=== PATIENT | male | born 1995 | race Caucasian/White ===

== ENCOUNTER 2018-06-10 16:04 | Emergency (ER) | payer MEDICAID, SELFPAY ==
[2018-06-10 16:08] VITALS: BP 158/101; PULSE 131; RESP 26; TEMP 36.6; O2SAT 95; BMI 23.6
--- NOTE | 2018-06-10 16:32 | EKG12_ITS ---
Test Reason : OVERDOSE Blood Pressure : / mmHG Vent. Rate : 121 BPM Atrial Rate : 121 BPM P-R Int : 132 ms QRS Dur : 078 ms QT Int : 316 ms P-R-T Axes : 073 083 038 degrees QTc Int : 448 ms Sinus tachycardia Otherwise normal ECG Confirmed by EDGARDO JAVED, DEIDRE ([id number]), tape editor CHERELLE LEY ([id number]) on 06/11/2018 8:23:32 AM Referred By: JULIUS Confirmed By:DEIDRE REYNOSO MD
[2018-06-10] MEDS: 0.9% Normal Saline 1,000 ML 999 ML IV (16:42)
[2018-06-10 17:29] VITALS: BP 131/104; PULSE 90; RESP 16; O2SAT 98
[2018-06-10 17:52] VITALS: BP 127/89; PULSE 83; RESP 16; O2SAT 100
--- NOTE | 2018-06-10 17:52 | ED.VISSUMM ---
- ER Visit Summary Date of Service: 06/10/18 Chief Complaint: Unresponsive History of Present Illness: The patient is a 23 M presenting per EMS after being found unresponsive. Patient was given Narcan per EMS. He initially had agonal respirations. This resolved with Narcan. He admits to heroin use today. He denies suicidal ideation. Denies other complaints. Physical Examination: Vitals are stable. Heart rate 131. Patient is afebrile. Alert no acute distress. HEENT exam is unremarkable. Neck is supple. Lungs are clear and equal bilaterally. Heart is regular and tachycardic Abdomen is soft nontender nondistended. Extremities track escalera, no erythema or warmth. Skin is warm and dry. No focal neurologic deficit. Remainder of exam is unremarkable. Emergency Department Course and Treatment: EKG is sinus tachycardia rate of 121. Patient was given IV fluids. Repeat heart rate 89. He was observed in the ED and continues to be hemodynamically stable. He will be discharged. Advised follow-up with primary care physician. Advised return to ED if worsening complaints. Disposition: Discharge home Impression: Heroin overdose This note was generated with [employer] dictation software. It may contain incorrect words, spelling, and punctuation that were not noted in review of the chart prior to signing ED Disposition - Plan for ED Patient: Referrals: Hector Swann [Primary Care Provider] -
--- NOTE | 2018-06-10 17:56 | ED.DEP ---
ED Disposition - Plan for ED Patient: Instructions: ED Overdose Opiate Referrals: Hector Swann [Primary Care Provider] -
== END 2018-06-10 18:02 | disposition home or self-care (01) ==
PROVIDERS: Emergency Provider Emergency Medicine; Family Provider Family Medicine; PCP Family Medicine
DX: T40.1X1A Poisoning by heroin, accidental (unintentional), initial encounter (principal); Z72.0 Tobacco use
CPT/HCPCS: 93005; 96360; 99285; J7030; A4216

== ENCOUNTER → 2019-03-12 09:04 | Outpatient (CLI) | payer MEDICAID, SELFPAY ==
[2019-03-12 11:26] LABS: AST(SGOT) 38 U/L (15-37); Alanine Aminotransfer ALT/SGPT 107 U/L (16-61); Albumin, Serum 4.2 g/dL (3.2-5.0); Alkaline Phosphatase 24 U/L (45-117); Bilirubin, Direct 0.16 mg/dL (0.00-0.30); Globulin 3.3 g/dL (2.2-4.2); Protein, Total 7.5 g/dL (6.4-8.2)
[2019-03-12 11:29] LABS: Hepatitis B Surface Antigen Non-Reactive (Nonreactive)
[2019-03-12 11:38] LABS: Hepatitis C Antibody REACTIVE (Nonreactive)
== END ==
PROVIDERS: Family Provider Family Medicine; PCP Family Medicine
DX: R63.0 Anorexia (principal); R53.81 Other malaise; R11.0 Nausea
CPT/HCPCS: 36415; 80076; 86803; 87340; 87521

== ENCOUNTER 2019-12-30 18:23 | Emergency (ER) | payer MEDICAID, SELFPAY ==
[2019-12-30 18:27] VITALS: BP 145/84; PULSE 110; RESP 20; TEMP 37.2; O2SAT 97; BMI 23.3
[2019-12-30 19:24] VITALS: BP 104/79; PULSE 91; RESP 14; O2SAT 94
--- NOTE | 2019-12-30 19:34 | ED.DCSUM_ITS ---
- ER Visit Summary Date of Service: 12/30/19 Chief Complaint: Heroin overdose History of Present Illness: The patient is a 24 M presenting per EMS after heroin overdose. According to bystander patient had decreased respirations after using heroin. EMS was called. He was given Narcan. He is now awake and alert. He denies suicidal ideation. He declines detox. Denies other drug use. Physical Examination: Vitals are stable. Patient is afebrile. Alert no acute distress. HEENT exam is unremarkable. Neck is supple. Lungs are clear and equal bilaterally. Heart is regular rate and rhythm. Abdomen is soft nontender nondistended. Extremities are unremarkable. Skin is warm and dry. No focal neurologic deficit. Remainder of exam is unremarkable. Emergency Department Course and Treatment: Patient was observed in the ED. He continues to decline detox. Advised follow-up with primary care physician. Advised return to ED for worsening complaints. Disposition: Discharge home Impression: Accidental heroin overdose This note was generated with [employer] dictation software. It may contain incorrect words, spelling, and punctuation that were not noted in review of the chart prior to signing ED Disposition - Plan for ED Patient: Instructions: ED Overdose Opiate Referrals: Hector Swann MD [Primary Care Provider] -
[2019-12-30 19:53] VITALS: BP 108/64; PULSE 85; RESP 16; O2SAT 93
== END 2019-12-30 19:56 | disposition home or self-care (01) ==
PROVIDERS: Emergency Provider Emergency Medicine; PCP Family Medicine
DX: T40.1X1A Poisoning by heroin, accidental (unintentional), initial encounter (principal); F17.200 Nicotine dependence, unspecified, uncomplicated
CPT/HCPCS: 99284

== ENCOUNTER 2020-03-09 23:19 | Inpatient (IN) | payer MEDICAID, SELFPAY ==
[2020-03-09 23:20] VITALS: BP 128/71; PULSE 84; RESP 16; TEMP 36.3; O2SAT 99; BMI 22.3
--- NOTE | 2020-03-09 23:30 | ED.DCSUM_ITS ---
History of Present Illness Chief Complaint: Substance Abuse Narrative: This patient is a 25-year-old male who presents seeking detox from heroin. He was in a detox program in August and relapsed the day he left. His last use was about 5 h ago. He currently complains of some chills but has no other complaints. He denies any medical history. Past Medical History - Allergies and Home Meds Allergies/Adverse Reactions: Allergies amoxicillin Allergy (Verified 03/09/20 23:22) Swelling Primary Care Physician: Hector Swann MD [Primary Care Provider] - Past Medical History: - - Heroin abuse Smoking Status: Current every day smoker Review of Systems All systems negative except as indicated General: Reports: Chills. Denies: Fever Eyes: Denies: Visual changes - bilaterally Cardiovascular: Denies: Chest pain Respiratory: Denies: Dyspnea Gastrointestinal: Denies: Nausea, Vomiting, Diarrhea Musculoskeletal: Denies: Myalgias, Arthralgias Neurological: Denies: Headache Physical Exam Vital Signs/Narrative: Vital Signs Temp Pulse Resp BP Pulse Ox 03/09/20 23:20 97.3 F L 84 16 128/71 H 99 Inital Vital Signs reviewed: Yes General: Well nourished, Well developed Head: Normocephalic Eyes: EOMI ENT: Moist mucous membranes Neck: Supple Cardiovascular: Regular rate, Regular rhythm Respiratory: No distress, CTA bilaterally Abdomen: Soft Skin: Normal color Neurological: Alert Psychological: Normal affect Diagnostic/Tx/Re-eval Laboratory Results 03/09/20 03/09/20 03/09/20 23:32 23:32 23:32 WBC 7.2 RBC 4.48 L Hgb 13.7 Hct 41.4 MCV 92.4 MCH 30.6 MCHC 33.1 RDW Std Deviation 42.1 RDW Coeff of Jasmine 12.4 Plt Count 288 MPV 9.6 Immature Gran % (Auto) 0.400 Neut % (Auto) 59.5 Lymph % (Auto) 30.7 Pet[place] % (Auto) 6.8 Eos % (Auto) 2.0 Baso % (Auto) 0.6 Absolute Neuts (auto) 4.3 Absolute Lymphs (auto) 2.20 Nucleated RBC % 0 Sodium 141 Potassium 4.2 Chloride 106 Carbon Dioxide 32.0 Anion Gap 3 L BUN 16 Creatinine 0.99 Estim Creat Clear Calc 117.09 Est GFR (MDRD) Af Amer 118 Est GFR (MDRD) Non-Af 98 BUN/Creatinine Ratio 16.1 Glucose 94 Calcium 9.0 Total Bilirubin 0.30 AST 25 ALT 55 Alkaline Phosphatase 37 L Total Protein 7.5 Albumin 3.7 Globulin 3.8 Albumin/Globulin Ratio 1.0 Urine Opiates Screen Urine Methadone Screen Ur Barbiturates Screen Ur Phencyclidine Scrn Ur Amphetamines Screen U Methamphetamin-MDMA U Benzodiazepines Scrn Urine Cocaine Screen U Cannabinoids Screen Ur Drug Screen Comment Ethyl Alcohol < 3.0 03/09/20 23:32 WBC RBC Hgb Hct MCV MCH MCHC RDW Std Deviation RDW Coeff of Jasmine Plt Count MPV Immature Gran % (Auto) Neut % (Auto) Lymph % (Auto) [place] % (Auto) Eos % (Auto) Baso % (Auto) Absolute Neuts (auto) Absolute Lymphs (auto) Nucleated RBC % Sodium Potassium Chloride Carbon Dioxide Anion Gap BUN Creatinine Estim Creat Clear Calc Est GFR (MDRD) Af Amer Est GFR (MDRD) Non-Af BUN/Creatinine Ratio Glucose Calcium Total Bilirubin AST ALT Alkaline Phosphatase Total Protein Albumin Globulin Albumin/Globulin Ratio Urine Opiates Screen POSITIVE H Urine Methadone Screen NEGATIVE Ur Barbiturates Screen NEGATIVE Ur Phencyclidine Scrn NEGATIVE Ur Amphetamines Screen POSITIVE H U Methamphetamin-MDMA POSITIVE H U Benzodiazepines Scrn NEGATIVE Urine Cocaine Screen NEGATIVE U Cannabinoids Screen NEGATIVE Ur Drug Screen Comment Ethyl Alcohol - Medical Decision Making Medical clearance as above notable for positive opiates amphetamines and methamphetamines on urine drug screen. Patient will be discussed with the hospitalist and admitted. ED Disposition - Plan for ED Patient: Disposition: Acute Care Hospital [facility] Diagnosis: Polysubstance abuse Referrals: Hector Swann MD [Primary Care Provider] -
[2020-03-09 23:40] LABS: Absolute Neutrophil Count 4.3 X10^3/uL (2.0-7.7); Basophil# 0.04 X10^3/uL; Basophil% 0.6 % (0-1); Eosinophil# 0.14 X10^3/uL; Hematocrit 41.4 % (40-54); Hemoglobin 13.7 g/dL (13.0-16.5); Lymphocyte % 30.7 % (19-41); Mean Corp Hgb Conc 33.1 g/dL (32-36); Mean Corpuscular Hgb 30.6 pg (27.0-32.0); Mean Corpuscular Volume 92.4 fL (80-94); Mean Platelet Vol. 9.6 fl (6.2-12.0); Monocyte# 0.49 X10^3/uL; Monocyte% 6.8 % (0-10); NRBC Flagged by Analyzer 0 % (0-5); Neutrophil # 4.27 X10^3/uL (2.7-7.7); Neutrophil % 59.5 % (47-70); Platelet Count 288 K/mm3 (150-450); RBC Distribution Width CV 12.4 % (11.6-14.6); RBC Distribution Width SD 42.1 fl (35.1-43.9); Red Blood Count 4.48 M/mm3 (4.6-6.2); White Blood Count 7.2 K/mm3 (4.4-11.0)
[2020-03-09 23:58] LABS: Alcohol, Blood (Medical)-Serum < 3.0 mg/dL
[2020-03-10] VITALS (9 sets, daily range): BP systolic 112–125; BP diastolic 60–75; PULSE 63–77; RESP 16–18; TEMP 36.4–36.7; O2SAT 97–100; BMI 22.0
[2020-03-10] LABS: AST(SGOT) 25 U/L (15-37); Alanine Aminotransfer ALT/SGPT 55 U/L (16-61); Albumin, Serum 3.7 g/dL (3.2-5.0); Alkaline Phosphatase 37 U/L (45-117); Amphetamine Urine VISTA POSITIVE (<1000 ng/mL); Anion Gap 3 (5-15); BUN 16 mg/dL (7-18); BUN/Creat Ratio 16.1 RATIO (10-20); Barbiturate Urine VISTA NEGATIVE (< 200 ng/mL); Benzodiazepine Urine VISTA NEGATIVE (< 200 ng/mL); Chloride 106 mmol/L (98-107); Cocaine Urine VISTA NEGATIVE (< 300 ng/mL); Creatinine, Serum 0.99 mg/dL (0.70-1.30); EST Glomerular Filtration Rate 98 mL/min (>60); Ecstacy Urine VISTA POSITIVE (< 500 ng/mL); Est Glom Filt Rate - Afr Amer 118 mL/min (>60); Estimated Creatinine Clearance 117.09 ml/min; Globulin 3.8 g/dL (2.2-4.2); Glucose 94 mg/dL (74-106); Methadone Urine VISTA NEGATIVE (< 300 ng/mL); PCP Urine VISTA NEGATIVE (< 25 ng/mL); Potassium 4.2 mmol/L (3.5-5.1); Protein, Total 7.5 g/dL (6.4-8.2); Sodium Level 141 mmol/L (136-145); THC Urine VISTA NEGATIVE (< 50 ng/mL); Vista UDS pH Range 6
--- NOTE | 2020-03-10 00:31 | HP.PCM_ITS ---
Problem List (1) Opioid abuse with withdrawal Status: Acute (2) Polysubstance abuse Status: Acute History of Present Illness Date of Admission: 03/10/20 Chief Complaint: withdrawal The patient is a 25 year old M with a significant history of hepatitis C; and polysubstance abuse who presents emergency department with desire for detoxification. While at the emergency department he began to have withdrawal symptoms. He reported his withdrawal symptoms as cold sweats. Heroin; cocaine; methamphetamine; weed and tobacco. He reports that he uses anything that he can lay his hands on. He shoots heroin in any part of his body. He uses about 3 g of heroin per day. The last time he used heroin was several hours before presentation (about noon before presenting to the emergency department). His snorts cocaine. He smokes methamphetamine and marijuana. Patient was at the prison. After he was released from prison he went to an inpatient rehab from June 02 2019 where he spent 84 days. He resumed using drugs at around September 15, 2019. He came to the emergency department with his girlfriend who is also here for detoxification. Past Medical History Medical History: Medical History (Last Updated 03/10/20 @ 01:[address] Gary Ackerman MD) Hepatitis C B19.20 Allergies amoxicillin Allergy (Verified 03/09/20 23:22) Swelling Home Medications: Ambulatory Orders Medication Instructions Recorded NK 12/30/19 Surgical History: - - Facial surgery with plates on 2 occasions. Arm surgery. Smoking Status: Current every day smoker Tobacco Use: Cigarettes - *Family History Maternal History Items: - - Denies history of drug use in family. Denies knowledge of maternal medical history Paternal History Items: Hypertension, - - Denies history of drug use in paternal family. Review of Systems Constitutional: Reports: Chills. Denies: Fever, Weight Change HEENT: Denies: Head Aches, Sinus Congestion, Sinus Drainage Cardiovascular: Denies: Chest Pain, Palpitations Respiratory: Denies: Cough, Shortness of breath at rest, Sputum production Gastrointestinal: Denies: Abdominal Pain, Nausea, Vomiting Genitourinary: Denies: Dysuria Musculoskeletal: Denies: Joint Pain, Joint Tenderness Skin: Denies: Rash, Wounds Neurological: Denies: Numbness, Tingling, Focal weakness Psychiatric: Denies: Anxiety, Depression, Homicidal Ideations, Suicidal Ideations Hematologic/ Lymphatic: Denies: Easy Bruising, Easy Bleeding VTE Information - Inpt Only VTE Present on Admission: No VTE Mechan Device Prophylaxis: None VTE Pharm Prophylaxis ordered?: No Reason prophylaxis not ordered:: Treatment Not Indicated - Low risk; encouraged to ambulate Patient Problems: Active and Suspected Problems (Last Updated 03/10/20 @ 01:[address] Gary Ackerman MD) Polysubstance abuse (Acute) Opioid abuse with withdrawal (Acute) - Physical Exam Vitals/I&O's: Vital Signs Temp Pulse Resp BP Pulse Ox 97.6 F L 72 18 112/60 98 03/10/20 00:21 03/10/20 00:21 03/10/20 00:21 03/10/20 00:21 03/10/20 00:21 Oxygen Delivery Method Room Air Weight: 72.575 kg Body Mass Index (BMI) 22.3 General: Alert, Oriented x3, Cooperative HEENT: Atraumatic, PERRLA, EOMI, Normocephalic Neck: Supple, No JVD, Negative Carotid Bruits Lungs: Clear to auscultation, Normal air movement Cardiovascular: Regular rate, No murmurs Abdomen: Bowel Sounds Present, Soft, Non Tender Extremities: No edema, Capillary Refill Less than 3 Seconds Skin: No rashes, No breakdown Musculoskeletal: No Tenderness to Palpation of Joints or Extremities Neurological: Cranial nerves II-XII grossly intact Psych/Mental Status: Normal Affect, Appropriate Laboratory Results 03/09/20 23:32: WBC 7.2, RBC 4.48 L, Hgb 13.7, Hct 41.4, MCV 92.4, MCH 30.6, MCHC 33.1, RDW Std Deviation 42.1, RDW Coeff of Jasmine 12.4, Plt Count 288, MPV 9.6, Immature Gran % (Auto) 0.400, Neut % (Auto) 59.5, Lymph % (Auto) 30.7, [place] % (Auto) 6.8, Eos % (Auto) 2.0, Baso % (Auto) 0.6, Absolute Neuts (auto) 4.3, Absolute Lymphs (auto) 2.20, Nucleated RBC % 0 03/09/20 23:32: Sodium 141, Potassium 4.2, Chloride 106, Carbon Dioxide 32.0, Anion Gap 3 L, BUN 16, Creatinine 0.99, Estim Creat Clear Calc 117.09, Est GFR (MDRD) Af Amer 118, Est GFR (MDRD) Non-Af 98, BUN/Creatinine Ratio 16.1, Glucose 94, Calcium 9.0, Total Bilirubin 0.30, AST 25, ALT 55, Alkaline Phosphatase 37 L , Total Protein 7.5, Albumin 3.7, Globulin 3.8, Albumin/Globulin Ratio 1.0 03/09/20 23:32: Ethyl Alcohol < 3.0 03/09/20 23:32: Urine Opiates Screen POSITIVE H, Urine Methadone Screen NEGATIVE, Ur Barbiturates Screen NEGATIVE, Ur Phencyclidine Scrn NEGATIVE, Ur Amphetamines Screen POSITIVE H, U Methamphetamin-MDMA POSITIVE H, U Benzodiazepines Scrn NEGATIVE, Urine Cocaine Screen NEGATIVE, U Cannabinoids Screen NEGATIVE, Ur Drug Screen Comment Assessment/Plan All Active Problems (Last Updated 03/10/20 @ 01:[address] Gary Ackerman MD) Polysubstance abuse (Acute) Opioid abuse with withdrawal (Acute) The patient is a 25 year old M with a significant history of polysubstance dependence; IV drug use; and abuse who presents emergency department with drug withdrawal symptoms and who came in with his spouse for joint detoxification Opioid dependence and withdrawal Review of emergency department labs showed urine toxicology was positive for opiates; amphetamines; and methamphetamines. Patient be started on Subutex and add adjunctive medications: Gabapentin as needed; dicyclomine as needed; Vistaril as needed; methocarbamol as needed; clonidine as needed; Imodium as needed; trazodone as needed and Zofran as needed. Monitor COWS and CINA score Tobacco abuse Counseled Declined nicotine patch prescribed. DVT prophylaxis Low risk Encouraged to ambulate Inpatient E&M: [id number] Init Hosp L2
--- NOTE | 2020-03-10 08:50 | CASEMGMT ---
Social Work Note Pt is RAMP pt. SW placed a call to Connie at [facility] and left message that pt will need to be seen. Irma Shirley WEB MARKETING MANAGER, WHEAT COMBINE DRIVER
--- NOTE | 2020-03-10 10:11 | ADDICTION ---
This radio script writer met with patient in his room to conduct ASAM, MSE and DUDIT assessments and to plan for discharge. patient reported that he has been in contact with [facility] and plans to admit into their inpatient program upon d/c from [facility]. This radio script writer provided contact information for [employer] in case plans with [facility] though. Patient presented with increasing agitation and physical agitation while this radio script writer was engaging in assessments. Patient stated that he was becoming very uncomfortable and experiencing withdrawal symptoms. This radio script writer informed patient's nurse. All completed documentation placed in client's chart and sent to [facility].
[2020-03-10] MEDS: Gabapentin 300 MG Capsule PO (10:22)
[2020-03-10] MEDS: Buprenorphine HCl 2 MG TAB.SUBL SL ×2 (10:22→17:53)
[2020-03-10] MEDS: Dicyclomine 10 MG Capsule 20 MG PO (12:09)
[2020-03-10] MEDS: cloNIDine HCl 0.1 MG Tablet PO ×2 (12:09→20:59)
--- NOTE | 2020-03-10 14:07 | PN_ITS ---
Patient Problems: Active and Suspected Problems (Last Updated 03/10/20 @ 01:[address] Gary Ackerman MD) Polysubstance abuse (Acute) Opioid abuse with withdrawal (Acute) Subjective: Patient seen and examined. He was admitted for acute opioid withdrawal. He has no complaints this morning. Review of systems otherwise negative. He is on opioid withdrawal protocol with buprenorphine Vitals/I&O's: Vital Signs Temp Pulse Resp BP Pulse Ox 97.9 F 74 18 119/65 98 03/10/20 10:13 03/10/20 10:13 03/10/20 10:13 03/10/20 10:13 03/10/20 10:13 Oxygen Delivery Method Room Air Weight: 157 lb 13.616 oz Body Mass Index (BMI) 22.0 Intake and Output for Last 24 Hours 03/08/20 03/09/20 03/10/20 23:59 23:59 23:59 Intake Total 360 / 360 Balance 360 / 360 General: Alert, Oriented x3, Cooperative, No apparent distress HEENT: Atraumatic, PERRLA, EOMI, Normocephalic Oral: Dry Mucosa Neck: Supple, No JVD, Negative Carotid Bruits Lungs: Clear to auscultation, Normal air movement Cardiovascular: Regular rate, Regular Rhythm, Normal S1, Normal S2, No murmurs Abdomen: Bowel Sounds Present, Soft, Non Tender, Non-Distended, No Hepato- splenomegaly Extremities: No clubbing, No cyanosis, No edema, Capillary Refill Less than 3 Seconds Skin: No rashes, No breakdown Musculoskeletal: No Tenderness to Palpation of Joints or Extremities Lymphatic: No Cervical, Supraclavicular, or Inguinal Adenopathy Neurological: Cranial nerves II-XII grossly intact, Neuro grossly intact, Motor Exam 5/5 strength throughout Psych/Mental Status: Normal Affect, Appropriate, Alert and oriented to time, place, person, mood and affect Laboratory Results 03/09/20 23:32: WBC 7.2, RBC 4.48 L, Hgb 13.7, Hct 41.4, MCV 92.4, MCH 30.6, MCHC 33.1, RDW Std Deviation 42.1, RDW Coeff of Jasmine 12.4, Plt Count 288, MPV 9.6, Immature Gran % (Auto) 0.400, Neut % (Auto) 59.5, Lymph % (Auto) 30.7, [place] % (Auto) 6.8, Eos % (Auto) 2.0, Baso % (Auto) 0.6, Absolute Neuts (auto) 4.3, Absolute Lymphs (auto) 2.20, Nucleated RBC % 0 03/09/20 23:32: Sodium 141, Potassium 4.2, Chloride 106, Carbon Dioxide 32.0, Anion Gap 3 L, BUN 16, Creatinine 0.99, Estim Creat Clear Calc 117.09, Est GFR (MDRD) Af Amer 118, Est GFR (MDRD) Non-Af 98, BUN/Creatinine Ratio 16.1, Glucose 94, Calcium 9.0, Total Bilirubin 0.30, AST 25, ALT 55, Alkaline Phosphatase 37 L , Total Protein 7.5, Albumin 3.7, Globulin 3.8, Albumin/Globulin Ratio 1.0 03/09/20 23:32: Ethyl Alcohol < 3.0 03/09/20 23:32: Urine Opiates Screen POSITIVE H, Urine Methadone Screen NEGATIVE, Ur Barbiturates Screen NEGATIVE, Ur Phencyclidine Scrn NEGATIVE, Ur Amphetamines Screen POSITIVE H, U Methamphetamin-MDMA POSITIVE H, U Benzodiazepines Scrn NEGATIVE, Urine Cocaine Screen NEGATIVE, U Cannabinoids Screen NEGATIVE, Ur Drug Screen Comment Current Medications Buprenorphine HCl (Buprenorphine Hcl 2 Mg Tab.Subl) 4 mg SL Q8H GAIL; Taper Stop: 03/13/20 10:29 Last Admin: 03/10/20 10:22 Dose: 4 mg Documented by: Clonidine (Clonidine Hcl 0.1 Mg Tablet) 0.1 mg PO Q8H PRN PRN PRN Reason: RESTLESSNESS Last Admin: 03/10/20 12:09 Dose: 0.1 mg Documented by: Dicyclomine HCl (Dicyclomine 10 Mg Capsule) 20 mg PO Q6H PRN PRN PRN Reason: Abdominal Discomfort Last Admin: 03/10/20 12:09 Dose: 20 mg Documented by: Gabapentin (Gabapentin 300 Mg Capsule) 300 mg PO Q8H PRN PRN PRN Reason: moderate to severe anxiety Last Admin: 03/10/20 10:22 Dose: 300 mg Documented by: Hydroxyzine Pamoate (Hydroxyzine Barbara 25 Mg Capsule) 50 mg PO Q6H PRN PRN PRN Reason: mild anxiety Loperamide HCl (Loperamide 2 Mg Capsule) 2 mg PO Q4H PRN PRN PRN Reason: LOOSE STOOLS Methocarbamol (Methocarbamol 750 Mg Tablet) 1,500 mg PO Q6H PRN PRN PRN Reason: MUSCLE SPASM Nutritional Formula (Lactose Free) (Ensure Enlive 120 Ml Liquid) 120 ml PO 4X/DAY GAIL Last Admin: 03/10/20 13:34 Dose: Not Given Documented by: Ondansetron HCl (Ondansetron 8 Mg Tablet) 8 mg PO Q8H PRN PRN PRN Reason: NAUSEA Trazodone HCl (Trazodone 100 Mg Tablet) 100 mg PO QHS PRN PRN PRN Reason: INSOMNIA STROKE Vital Signs/Narrative: Vital Signs Temp Pulse Resp BP Pulse Ox 03/10/20 10:13 97.9 F 74 18 119/65 98 Medical Necessity - Tobacco Use Smoking Status: Current every day smoker Tobacco Use: Cigarettes Assessment/Plan All Active Problems (Last Updated 03/10/20 @ 01:[address] Gary Ackerman MD) Polysubstance abuse (Acute) Opioid abuse with withdrawal (Acute) # Acute opioid withdrawal * on opioid withdrawal protocol with buprenorphine * urine tox was positive for opiates, methamphetamines. * monitor CINA score * # Nicotine dependence; counseled to quit. Patient apparently declined nicotine patch on admission. DVT prophylaxis; low risk, encouraged to ambulate Inpatient E&M: [id number] Subs Hosp L2
[2020-03-10] MEDS: hydrOXYzine PAM 25 MG Capsule 50 MG PO (14:42)
[2020-03-10] MEDS: traZODone 100 MG Tablet PO (20:59)
--- NOTE | 2020-03-11 01:16 | NURSING ---
Denies needs at this time. Warm blanket provided.
[2020-03-11 02:16] VITALS: BP 112/69; PULSE 66; RESP 16; TEMP 36.7; O2SAT 99
[2020-03-11] MEDS: Buprenorphine HCl 2 MG TAB.SUBL SL ×3 (02:23→18:05)
[2020-03-11 07:50] VITALS: BP 115/73; PULSE 63; RESP 18; TEMP 36.5; O2SAT 99
--- NOTE | 2020-03-11 07:50 | PN_ITS ---
Patient Problems: Active and Suspected Problems (Last Updated 03/10/20 @ 01:[address] Gary Ackerman MD) Polysubstance abuse (Acute) Opioid abuse with withdrawal (Acute) Subjective: Patient seen and examined. He has no complaints. Review of systems is otherwise negative. Vitals/I&O's: Vital Signs Temp Pulse Resp BP Pulse Ox 98.0 F 66 16 112/69 99 03/11/20 02:16 03/11/20 02:16 03/11/20 02:16 03/11/20 02:16 03/11/20 02:16 Oxygen Delivery Method Room Air Weight: 157 lb 13.616 oz Body Mass Index (BMI) 22.0 Intake and Output for Last 24 Hours 03/09/20 03/10/20 03/11/20 23:59 23:59 23:59 Intake Total 960 / 1160 200 / 200 Balance 960 / 1160 200 / 200 General: Alert, Oriented x3, Cooperative, No apparent distress HEENT: Atraumatic, PERRLA, EOMI, Normocephalic Oral: Dry Mucosa Neck: Supple, No JVD, Negative Carotid Bruits Lungs: Clear to auscultation, Normal air movement Cardiovascular: Regular rate, Regular Rhythm, Normal S1, Normal S2, No murmurs Abdomen: Bowel Sounds Present, Soft, Non Tender, Non-Distended, No Hepato- splenomegaly Extremities: No clubbing, No cyanosis, No edema, Capillary Refill Less than 3 Seconds Skin: No rashes, No breakdown Musculoskeletal: No Tenderness to Palpation of Joints or Extremities Lymphatic: No Cervical, Supraclavicular, or Inguinal Adenopathy Neurological: Cranial nerves II-XII grossly intact, Neuro grossly intact, Motor Exam 5/5 strength throughout Psych/Mental Status: Normal Affect, Appropriate, Alert and oriented to time, place, person, mood and affect Current Medications Buprenorphine HCl (Buprenorphine Hcl 2 Mg Tab.Subl) 4 mg SL Q8H GAIL; Taper Stop: 03/13/20 10:29 Last Admin: 03/11/20 02:23 Dose: 4 mg Documented by: Clonidine (Clonidine Hcl 0.1 Mg Tablet) 0.1 mg PO Q8H PRN PRN PRN Reason: RESTLESSNESS Last Admin: 03/10/20 20:59 Dose: 0.1 mg Documented by: Dicyclomine HCl (Dicyclomine 10 Mg Capsule) 20 mg PO Q6H PRN PRN PRN Reason: Abdominal Discomfort Last Admin: 03/10/20 12:09 Dose: 20 mg Documented by: Gabapentin (Gabapentin 300 Mg Capsule) 300 mg PO Q8H PRN PRN PRN Reason: moderate to severe anxiety Last Admin: 03/10/20 10:22 Dose: 300 mg Documented by: Hydroxyzine Pamoate (Hydroxyzine Barbara 25 Mg Capsule) 50 mg PO Q6H PRN PRN PRN Reason: mild anxiety Last Admin: 03/10/20 14:42 Dose: 50 mg Documented by: Loperamide HCl (Loperamide 2 Mg Capsule) 2 mg PO Q4H PRN PRN PRN Reason: LOOSE STOOLS Methocarbamol (Methocarbamol 750 Mg Tablet) 1,500 mg PO Q6H PRN PRN PRN Reason: MUSCLE SPASM Nutritional Formula (Lactose Free) (Ensure Enlive 120 Ml Liquid) 120 ml PO 4X/DAY GAIL Last Admin: 03/10/20 21:02 Dose: 120 ml Documented by: Ondansetron HCl (Ondansetron 8 Mg Tablet) 8 mg PO Q8H PRN PRN PRN Reason: NAUSEA Trazodone HCl (Trazodone 100 Mg Tablet) 100 mg PO QHS PRN PRN PRN Reason: INSOMNIA Last Admin: 03/10/20 20:59 Dose: 100 mg Documented by: STROKE Vital Signs/Narrative: Vital Signs Temp Pulse Resp BP Pulse Ox 03/11/20 07:50 97.7 F L 63 18 115/73 99 Medical Necessity - Tobacco Use Smoking Status: Current every day smoker Tobacco Use: Cigarettes Assessment/Plan All Active Problems (Last Updated 03/10/20 @ 01:[address] Gary Ackerman MD) Polysubstance abuse (Acute) Opioid abuse with withdrawal (Acute) # Acute opioid withdrawal * on opioid withdrawal protocol with buprenorphine * monitor CINA score * # Nicotine dependence; counseled to quit. Patient apparently declined nicotine patch on admission. DVT prophylaxis: low risk, encouraged to ambulate Inpatient E&M: [id number] Subs Hosp L2
[2020-03-11 13:02] VITALS: BP 130/67; PULSE 79; RESP 18; TEMP 36.7; O2SAT 98
[2020-03-11] MEDS: cloNIDine HCl 0.1 MG Tablet PO (13:06)
[2020-03-11] MEDS: Gabapentin 300 MG Capsule PO (13:06)
--- NOTE | 2020-03-11 17:58 | PCS.PANDOC ---
PANDEMIC DOCUMENTATION INITIATED: Date: 03/10/20 Time: 0114
[2020-03-11 18:04] VITALS: BP 124/53; PULSE 74; RESP 18; TEMP 36.8; O2SAT 98
[2020-03-11 20:18] VITALS: BP 119/86; PULSE 89; RESP 16; TEMP 36.8; O2SAT 98
[2020-03-11] MEDS: traZODone 100 MG Tablet PO (22:06)
[2020-03-12 02:45] VITALS: BP 117/74; PULSE 61; RESP 16; TEMP 36.4; O2SAT 99
[2020-03-12] MEDS: Buprenorphine HCl 2 MG TAB.SUBL SL ×3 (02:47→22:17)
--- NOTE | 2020-03-12 07:59 | PN_ITS ---
Patient Problems: Active and Suspected Problems (Last Updated 03/10/20 @ 01:[address] Gary Ackerman MD) Polysubstance abuse (Acute) Opioid abuse with withdrawal (Acute) Subjective: Patient seen and examined. He has no complaints today. Review of systems otherwise negative. He has remained hemodynamically stable. Vitals/I&O's: Vital Signs Temp Pulse Resp BP Pulse Ox 97.6 F L 61 16 117/74 99 03/12/20 02:45 03/12/20 02:45 03/12/20 02:45 03/12/20 02:45 03/12/20 02:45 Oxygen Delivery Method Room Air Weight: 157 lb 13.616 oz Body Mass Index (BMI) 22.0 Intake and Output for Last 24 Hours 03/10/20 03/11/20 03/12/20 23:59 23:59 23:59 Intake Total 960 / 1160 1280 / 1280 Balance 960 / 1160 1280 / 1280 General: Alert, Oriented x3, Cooperative, No apparent distress HEENT: Atraumatic, PERRLA, EOMI, Normocephalic Oral: Dry Mucosa Neck: Supple, No JVD, Negative Carotid Bruits Lungs: Clear to auscultation, Normal air movement Cardiovascular: Regular rate, Regular Rhythm, Normal S1, Normal S2, No murmurs Abdomen: Bowel Sounds Present, Soft, Non Tender, Non-Distended, No Hepato- splenomegaly Extremities: No clubbing, No cyanosis, No edema, Capillary Refill Less than 3 Seconds Skin: No rashes, No breakdown Musculoskeletal: No Tenderness to Palpation of Joints or Extremities Lymphatic: No Cervical, Supraclavicular, or Inguinal Adenopathy Neurological: Cranial nerves II-XII grossly intact, Neuro grossly intact, Motor Exam 5/5 strength throughout Psych/Mental Status: Normal Affect, Appropriate, Alert and oriented to time, place, person, mood and affect Current Medications Buprenorphine HCl (Buprenorphine Hcl 2 Mg Tab.Subl) 2 mg SL Q8H GAIL; Taper Stop: 03/13/20 10:29 Last Admin: 03/12/20 02:47 Dose: 2 mg Documented by: Clonidine (Clonidine Hcl 0.1 Mg Tablet) 0.1 mg PO Q8H PRN PRN PRN Reason: RESTLESSNESS Last Admin: 03/11/20 13:06 Dose: 0.1 mg Documented by: Dicyclomine HCl (Dicyclomine 10 Mg Capsule) 20 mg PO Q6H PRN PRN PRN Reason: Abdominal Discomfort Last Admin: 03/10/20 12:09 Dose: 20 mg Documented by: Gabapentin (Gabapentin 300 Mg Capsule) 300 mg PO Q8H PRN PRN PRN Reason: moderate to severe anxiety Last Admin: 03/11/20 13:06 Dose: 300 mg Documented by: Hydroxyzine Pamoate (Hydroxyzine Barbara 25 Mg Capsule) 50 mg PO Q6H PRN PRN PRN Reason: mild anxiety Last Admin: 03/10/20 14:42 Dose: 50 mg Documented by: Loperamide HCl (Loperamide 2 Mg Capsule) 2 mg PO Q4H PRN PRN PRN Reason: LOOSE STOOLS Methocarbamol (Methocarbamol 750 Mg Tablet) 1,500 mg PO Q6H PRN PRN PRN Reason: MUSCLE SPASM Nutritional Formula (Lactose Free) (Ensure Enlive 120 Ml Liquid) 120 ml PO 4X/DAY GAIL Last Admin: 03/11/20 20:17 Dose: 120 ml Documented by: Ondansetron HCl (Ondansetron 8 Mg Tablet) 8 mg PO Q8H PRN PRN PRN Reason: NAUSEA Trazodone HCl (Trazodone 100 Mg Tablet) 100 mg PO QHS PRN PRN PRN Reason: INSOMNIA Last Admin: 03/11/20 22:06 Dose: 100 mg Documented by: Medical Necessity - Tobacco Use Smoking Status: Current every day smoker Tobacco Use: Cigarettes Assessment/Plan All Active Problems (Last Updated 03/10/20 @ 01:[address] Gary Ackerman MD) Polysubstance abuse (Acute) Opioid abuse with withdrawal (Acute) # Acute opioid withdrawal * on opioid withdrawal protocol with buprenorphine * monitor CINA score * # Nicotine dependence; counseled to quit. Patient apparently declined nicotine patch on admission. DVT prophylaxis: low risk, encouraged to ambulate Inpatient E&M: 20017 Subs Hosp L2
[2020-03-12] MEDS: hydrOXYzine PAM 25 MG Capsule 50 MG PO (10:19)
[2020-03-12 10:22] VITALS: BP 110/60; PULSE 72; RESP 18; TEMP 36.4; O2SAT 97
[2020-03-12 17:22] VITALS: BP 113/70; PULSE 80; RESP 18; TEMP 36.4; O2SAT 98
[2020-03-12] MEDS: Gabapentin 300 MG Capsule PO (17:25)
[2020-03-12] MEDS: traZODone 100 MG Tablet PO (22:17)
[2020-03-12 22:20] VITALS: BP 118/62; PULSE 81; RESP 16; TEMP 36.6; O2SAT 97
[2020-03-13 09:01] VITALS: BP 118/74; PULSE 82; RESP 18; TEMP 36.7; O2SAT 98
--- NOTE | 2020-03-13 09:24 | DCINST_ITS ---
- Discharge Diagnoses Current Active Problems: Current Active and Chronic Problems (Last Updated 03/10/20 @ 01:[address] Gary Ackerman MD) Polysubstance abuse (Acute) Opioid abuse with withdrawal (Acute) You will use the following diet at home:: No restrictions Your food should be the consistency of: Regular Your liquids should be the consistency of: Regular/Thin Discharge Activity: Return to Normal Activity Weight Bearing Status: Weight bearing as tolerated Call your doctor if you observe: Fever of 101 or Higher, Shortness of breath, Dizziness, Fainting spells, Swelling in the ankles Instructions: ED Abuse Drug Narcotic Sedative Rx Additional Instructions: follow up with [facility] on outpatient basis Allergies/Adverse Reactions: Allergies amoxicillin Allergy (Verified 03/09/20 23:22) Swelling Medications to take at Discharge NK 12/30/19 Primary Care Physician: Hector Swann MD [Primary Care Provider] - Please follow up with your Primary Care Physician in: 1-2 weeks Test Results: Test results from this visit will be discussed in further detail at your follow- up appointment, if applicable. Proposed Discharge Date: 03/13/20
--- NOTE | 2020-03-13 09:25 | PCM.DC.SUM ---
Discharge Date and Diagnosis - Problem List Patient Problems: Active and Suspected Problems (Last Updated 03/10/20 @ 01:[address] Gary Ackerman MD) Polysubstance abuse (Acute) Opioid abuse with withdrawal (Acute) Date of Admission: 03/10/20 Date of Discharge: 03/13/20 - Primary Discharge Diagnosis Acute Problems: Active Problems (Last Updated 03/10/20 @ 01:[address] Gary Ackerman MD) Polysubstance abuse (Acute) Opioid abuse with withdrawal (Acute) Hospital Course and Treatment Operations: None Procedures: None Summary of Care Provided: The patient is a 25 year old M with a past medical history of hepatitis C and polysubstance abuse was admitted through the ED on 03/10/2020 for acute opiate withdrawal. He has a history of using heroin, cocaine and nicotine use about 3 g of heroin daily. He used heroin a few hours before admission. He did go to rehab in May 2019 and states he was off for some months and started using drugs again. He was admitted and managed for acute opioid withdrawal and started on buprenorphine withdrawal protocol. Urine tox was positive for opiates, amphetamines and methamphetamines. He declined nicotine patch. He tolerated a 3 day detox process well. He remained stable and was discharged home on 03/13/2020. He was seen by [facility] whilst in the hospital, and is to follow-up with them on outpatient basis. Patient seen and examined prior to discharge. He had no complaints and felt well. Review of symptoms otherwise negative. Labs and vitals reviewed. Medication reviewed and reconciled. O/E: Vital Signs Temp Pulse Resp BP Pulse Ox 98.0 F 82 18 118/74 98 03/13/20 09:01 03/13/20 09:01 03/13/20 09:01 03/13/20 09:01 03/13/20 09:01 [] General: Alert, Oriented x3, Cooperative, No apparent distress HEENT: Atraumatic, PERRLA, EOMI, Normocephalic Oral: Dry Mucosa Neck: Supple, No JVD, Negative Carotid Bruits Lungs: Clear to auscultation, Normal air movement Cardiovascular: Regular rate, Regular Rhythm, Normal S1, Normal S2, No murmurs Abdomen: Bowel Sounds Present, Soft, Non Tender, Non-Distended, No Hepato-splenomegaly Extremities: No clubbing, No cyanosis, No edema, Capillary Refill Less than 3 Seconds Skin: No rashes, No breakdown Musculoskeletal: No Tenderness to Palpation of Joints or Extremities Lymphatic: No Cervical, Supraclavicular, or Inguinal Adenopathy Neurological: Cranial nerves II-XII grossly intact, Neuro grossly intact, Motor Exam 5/5 strength throughout Psych/Mental Status: Normal Affect, Appropriate, Alert and oriented to time, place, person, mood and affect Plan is for discharge home today. Patient Problems: Active and Suspected Problems (Last Updated 03/10/20 @ 01:[address] Gary Ackerman MD) Polysubstance abuse (Acute) Opioid abuse with withdrawal (Acute) - Physical Exam Vitals/I&O's: Vital Signs Temp Pulse Resp BP Pulse Ox 98.0 F 82 18 118/74 98 03/13/20 09:01 03/13/20 09:01 03/13/20 09:01 03/13/20 09:01 03/13/20 09:01 Oxygen Delivery Method Room Air Weight: 157 lb 13.616 oz Body Mass Index (BMI) 22.0 Intake and Output for Last 24 Hours 03/11/20 03/12/20 03/13/20 23:59 23:59 23:59 Intake Total 1280 / 1280 Balance 1280 / 1280 Current Medications Buprenorphine HCl (Buprenorphine Hcl 2 Mg Tab.Subl) 2 mg SL Q12H GAIL; Taper Stop: 03/13/20 10:29 Last Admin: 03/12/20 22:17 Dose: 2 mg Documented by: Clonidine (Clonidine Hcl 0.1 Mg Tablet) 0.1 mg PO Q8H PRN PRN PRN Reason: RESTLESSNESS Last Admin: 03/11/20 13:06 Dose: 0.1 mg Documented by: Dicyclomine HCl (Dicyclomine 10 Mg Capsule) 20 mg PO Q6H PRN PRN PRN Reason: Abdominal Discomfort Last Admin: 03/10/20 12:09 Dose: 20 mg Documented by: Gabapentin (Gabapentin 300 Mg Capsule) 300 mg PO Q8H PRN PRN PRN Reason: moderate to severe anxiety Last Admin: 03/12/20 17:25 Dose: 300 mg Documented by: Hydroxyzine Pamoate (Hydroxyzine Barbara 25 Mg Capsule) 50 mg PO Q6H PRN PRN PRN Reason: mild anxiety Last Admin: 03/12/20 10:19 Dose: 50 mg Documented by: Loperamide HCl (Loperamide 2 Mg Capsule) 2 mg PO Q4H PRN PRN PRN Reason: LOOSE STOOLS Methocarbamol (Methocarbamol 750 Mg Tablet) 1,500 mg PO Q6H PRN PRN PRN Reason: MUSCLE SPASM Nutritional Formula (Lactose Free) (Ensure Enlive 120 Ml Liquid) 120 ml PO 4X/DAY GAIL Last Admin: 03/12/20 22:17 Dose: Not Given Documented by: Ondansetron HCl (Ondansetron 8 Mg Tablet) 8 mg PO Q8H PRN PRN PRN Reason: NAUSEA Trazodone HCl (Trazodone 100 Mg Tablet) 100 mg PO QHS PRN PRN PRN Reason: INSOMNIA Last Admin: 03/12/20 22:17 Dose: 100 mg Documented by: Discharge Diet: No Restrictions Discharge Activity: Return to Normal Activity Weight Bearing Status: Weight bearing as tolerated Call your doctor if you observe: Fever of 101 or Higher, Shortness of breath, Dizziness, Fainting spells, Swelling in the ankles Home Medications: Medications to take at Discharge NK 12/30/19 Primary Care Physician: Hector Swann MD [Primary Care Provider] - Please follow up with your Primary Care Physician in: 1-2 weeks Patient Instructions: ED Abuse Drug Narcotic Sedative Rx Disposition: Home Minutes spent on discharge:: 45 Patient Condition:: Stable Medical Necessity - Tobacco Use Smoking Status: Current every day smoker Tobacco Use: Cigarettes Meaningful Use Info Meaningful Use Diagnoses (Choose all that apply): None applicable Inpatient E&M: 17775 [facility] Hosp
== END 2020-03-13 10:45 | disposition home or self-care (01) | DRG 773 ==
LOC: ED 03-10 00:12 → MS3 03-10 06:16
PROVIDERS: Admitting Provider Hospitalist; Emergency Provider Emergency Medicine; PCP Family Medicine; Visit Provider Student in an Organized Health Care Education/Training Program
DX: F11.23 Opioid dependence with withdrawal (principal); F17.210 Nicotine dependence, cigarettes, uncomplicated; Z86.19 Personal history of other infectious and parasitic diseases; F14.90 Cocaine use, unspecified, uncomplicated; F15.90 Other stimulant use, unspecified, uncomplicated; F12.90 Cannabis use, unspecified, uncomplicated
CPT/HCPCS: 80053; 80307; 80320; 85025; 99283; G0480

== ENCOUNTER 2024-02-03 22:32 | Emergency (ER) | payer SELFPAY ==
[2024-02-03 22:33] VITALS: BP 144/80; PULSE 69; RESP 16; TEMP 37.3; O2SAT 100; BMI 22.5
--- NOTE | 2024-02-03 22:51 | CT_ITS ---
INDICATION: Pain (RLQ) EXAMINATION: CT ABDOMEN AND PELVIS WITHOUT CONTRAST - CT Abdomen And Pelvis W/O Contrast Injection TECHNIQUE: Helically acquired images were obtained of the abdomen and pelvis without oral or IV contrast. A radiation dose optimization technique was used for this scan. IV Contrast dosage and agent: None. Oral contrast: None. COMPARISON: None. FINDINGS: LOWER CHEST: 4 mm noncalcified nodule inferior lingula. No cardiomegaly or pericardial effusion. LIVER: Homogeneous. No focal mass. GALLBLADDER AND BILIARY TREE: No calcified gallstones. No gallbladder distension or wall edema. No intra- or extrahepatic biliary ductal dilation. PANCREAS: No focal cystic or solid mass. SPLEEN: Splenomegaly. ADRENAL GLANDS: No nodules. KIDNEYS AND URETERS: No nephrolithiasis or hydronephrosis. PERITONEUM: No free air. Scattered pelvic ascites. BOWEL: Normal appendix. Abnormal distal small bowel loops in the lower abdomen and pelvis with mild distention, wall thickening and adjacent inflammatory stranding. LYMPH NODES: No enlarged mesenteric or retroperitoneal lymph nodes. VESSELS: Aorta is non-dilated. URINARY BLADDER: Nondistended. REPRODUCTIVE ORGANS: No pelvic masses. ABDOMINAL WALL: No discrete abdominal or pelvic wall hernia. BONES: Unremarkable. CT/Abdomen/Pelvis without Cont IMPRESSION: Findings consistent with enteritis involving the distal small bowel. Associated scattered pelvic ascites. 4 mm nodule inferior lingula of doubtful clinical significance in this age range. No specific follow-up indicated. Electronically Signed: Ollie Hamilton MD at 0:12 EST ,
--- NOTE | 2024-02-03 22:52 | EX.ED.DYSGE1 ---
HPI History of Present Illness Chief Complaint: Abd Pain Informant: patient and parent Narrative Narrative: 28-year-old male presenting to the emergency room abdominal pain. Patient states that about 2 hours ago he was getting ready for bed when he developed the pain periumbilical towards the right side. He states that it progressively got worse. He states he had a bowel movement thinking that that might help. That appeared normal to him. He denies any vomiting. He states he was fine earlier in the day. He states the pain has basically resolved since coming back from triage. States when he urinated things felt different but it is hard for him to explain. He denies any blood in the urine or dark urine. No fever. Denies any prior abdominal surgeries. Patient is on Suboxone. [facility] Medical History (Updated 02/04/24 @ 00:[address] Hai Amaro, ) Substance abuse Hepatitis C Home Medications ?Medication ?Instructions ?Recorded ?Last Taken ?Type buprenorphine 8 mg-naloxone 2 mg 1 ea sublingual DAILY 02/03/24 Unknown History sublingual film Allergy/AdvReac Type Severity Reaction Status Date / Time amoxicillin Allergy Swelling Verified 02/03/24 22:34 Social History Smoking Status: Current some day smoker tobacco type: cigarettes, cigars, e-cigarettes and smokeless tobacco ROS ROS ED Constitutional Constitutional ED: Denies chills, fever(s) or weight loss Eyes Eyes: Denies change in vision or diplopia ENT ENT ED: Denies ear pain, rhinorrhea or sore throat Cardiovascular Cardiovascular: Denies chest pain, orthopnea, palpitations or racing heartbeat Respiratory/Chest Respiratory/Chest: Denies cough, dyspnea or orthopnea Gastrointestinal Gastrointestinal: Reports abdominal pain; Denies diarrhea, nausea or vomiting Genitourinary Genitourinary ED: Denies dysuria, hematuria or urinary frequency Musculoskeletal Musculoskeletal: Denies arthralgias or myalgias Integumentary Denies abscess or rash Neurologic Neurologic: Denies headache(s) or weakness Psychiatric Psychiatric: Denies anxiety, depression, suicidal ideation or suicidal thoughts Endocrine Endocrinology: Denies polydipsia, polyphagia or polyuria Allergic/Immunologic Allergic/Immunologic ED: Denies mouth swelling, tongue swelling or urticaria EXAM Physical Exam Const Vital Signs: 02/03/24 22:33 02/04/24 00:32 Temperature 99.1 F Temperature Source Oral Pulse Rate 69 60 Respiratory Rate 16 14 Blood Pressure 144/80 H 112/62 Blood Pressure Mean 101 78 Pulse Ox 100 98 Oxygen Delivery Method Room Air Room Air Positive well nourished and well developed General Appearance ED: well developed HEENT Reports normocephalic, head/scalp atraumatic and moist mucous membranes Eyes PERRL and EOMs intact bilaterally Neck no lymphadenopathy, supple and no JVD Resp normal respiratory effort and clear to auscultation bilaterally Cardio regular rate, regular rhythm and no murmurs GI non-tender GI Narrative: The abdomen is soft. There is normal bowel sounds. He states there is some mild tenderness on the fourth or fifth palpation of the right lower quadrant Inspection: Negative for abdominal distention Auscultation: normoactive bowel sounds Palpation: soft and tender RLQ; Negative for guarding or rebound tenderness present Back/Spine no CVA tenderness and normal ROM Extremity normal to inspection General Extremety ED: Negative for edema General Extremity: Negative for edema Neuro oriented x3 and CN's II-XII intact bilaterally Sensorium / Orientation: alert Motor Exam: strength 5/5 throughout Psych mental status grossly normal Mood & Affect: Negative for depressed or tearful Skin no rashes or lesions noted and no wounds MDM MDM MDM Narrative Medical decision making narrative: Differential diagnosis includes but not limited to acute appendicitis ureterolithiasis colitis epiploic appendagitis UTI White count 10.8 hemoglobin 12.9 platelet count of 213. BMP within normal limits. Urinalysis with no overt infection or hematuria. CT abdomen pelvis was obtained. This was read by radiology reviewed by myself. There is a fair amount of stool located throughout the colon which I think is most likely related to his buprenorphine and naloxone use. There is some dilated loops of small bowel with inflammatory change noted. I think the patient's pain is most likely colonic in nature. He could benefit from a stool softener. There is a good chance the patient may develop a fever or diarrhea. I did do not think the patient needs to be hospitalized. He has been asymptomatic for well over an hour now. History & Record Review Discussion w/independent historian: Patient and Family Lab Data Attestation: I reviewed the patient's lab results. Labs: Laboratory Results - last 24 hr 02/03/24 23:20 WBC 10.8 RBC 4.14 L Hgb 12.9 L Hct 36.4 L MCV 87.9 MCH 31.2 MCHC 35.4 RDW Std Deviation 40.4 RDW Coeff of Jasmine 12.6 Plt Count 213 MPV 10.0 Immature Gran % (Auto) 0.400 Neut % (Auto) 69.4 Lymph % (Auto) 22.8 Vernon % (Auto) 4.7 Eos % (Auto) 2.5 Baso % (Auto) 0.2 Absolute Neuts (auto) 7.5 Absolute Lymphs (auto) 2.47 Nucleated RBC % 0 Sodium 138 Potassium 3.8 Chloride 105 Carbon Dioxide 27.0 Anion Gap 5 BUN 16 Creatinine 0.82 Estim Creat Clear Calc 143.00 Est GFR (MDRD) Af Amer 143 Est GFR (MDRD) Non-Af 118 BUN/Creatinine Ratio 19.6 Glucose 100 Calcium 8.9 Urine Color Yellow Urine Clarity Clear Urine pH 6.5 Ur Specific [place]tern[place] 1.010 Urine Protein Negative Urine Glucose (UA) Normal Urine Ketones Negative Urine Occult Blood Negative Urine Nitrite Negative Urine Bilirubin Negative Urine Urobilinogen Normal Ur Leukocyte Esterase Negative Urine RBC 0-5 SEEN Urine WBC 0-5 SEEN Ur Squamous Epith Cells 0 SEEN Urine Bacteria RARE Urine Mucus 0 SEEN Radiography Diagnostic Testing: Clinical Impression(s) from Imaging Studies Abdomen/Pelvis CT 02/03/24 22:51 IMPRESSION: Findings consistent with enteritis involving the distal small bowel. Associated scattered pelvic ascites. 4 mm nodule inferior lingula of doubtful clinical significance in this age range. No specific follow-up indicated. Electronically Signed: Ollie Hamilton MD at 0:12 EST , Discharge Plan Triage Chief Complaint: Abd Pain ED Provider: Hai Amaro Dx/Rx/DC Orders Clinical Impression: Abdominal pain, Enteritis Instructions: Abdominal Pain Prescriptions: No Action buprenorphine-naloxone 8-2 mg film 1 ea sublingual DAILY Primary Care Provider: Hector Swann Referrals: Hector Swann MD [Primary Care Provider] - As Needed Print Language: [place] Disposition Disposition: Home, Self Care Discharge Date/Time: 02/04/24 00:47
[2024-02-03 23:34] LABS: Mucous, Urine 0 SEEN /hpf (<or=2+); Squamous Epithelial Cells - UA 0 SEEN /hpf (0-5)
[2024-02-03 23:36] LABS: Absolute Lymphocyte Count 2.47 X10^3/uL (0.83-4.51); Absolute Neutrophil Count 7.5 X10^3/uL (2.0-7.7); Basophil# 0.02 X10^3/uL; Basophil% 0.2 % (0-1); Eosinophil# 0.27 X10^3/uL; Eosinophils% 2.5 % (0-5); Hematocrit 36.4 % (40-54); Hemoglobin 12.9 g/dL (13.0-16.5); Lymphocyte # 2.47 X10^3/ul (0.83-4.51); Lymphocyte % 22.8 % (19-41); Mean Corp Hgb Conc 35.4 g/dL (32-36); Mean Corpuscular Hgb 31.2 pg (27.0-32.0); Mean Corpuscular Volume 87.9 fL (80-94); Monocyte# 0.51 X10^3/uL; Monocyte% 4.7 % (0-10); NRBC Flagged by Analyzer 0 % (0-5); Neutrophil # 7.53 X10^3/uL (2.7-7.7); Neutrophil % 69.4 % (47-70); Platelet Count 213 K/mm3 (150-450); RBC Distribution Width CV 12.6 % (11.6-14.6); RBC Distribution Width SD 40.4 fl (35.1-43.9); Red Blood Count 4.14 M/mm3 (4.6-6.2); White Blood Count 10.8 K/mm3 (4.4-11.0)
[2024-02-03 23:38] LABS: Color, Urine Yellow (Yellow); Glucose, Dipstick Normal (Normal); Ketone-Dipstick Negative (Negative); Leukocyte Esterase-Dipstick Negative /ul (Negative); Nitrite-Dipstick Negative (Negative); Occult Blood-Urine Negative /ul (Negative); Protein-Dipstick Negative (Negative); Urine Bilirubin Dipstick Negative (Negative); Urine Clarity Clear (Clear); Urine Urobilinogen Normal (Normal); Urine pH 6.5 (5.0 - 8.0)
[2024-02-03 23:51] LABS: Red Blood Cells-Urine 0-5 SEEN /hpf (0-5); White Blood Cells 0-5 SEEN /hpf (0-5)
[2024-02-03 23:52] LABS: Bacteria RARE /hpf (None Seen)
[2024-02-03 23:57] LABS: Anion Gap 5 (5-15); BUN 16 mg/dL (7-18); BUN/Creat Ratio 19.6 RATIO (10-20); Calcium,Total 8.9 mg/dL (8.5-10.1); Chloride 105 mmol/L (98-107); Creatinine, Serum 0.82 mg/dL (0.70-1.30); EST Glomerular Filtration Rate 118 mL/min (>60); Est Glom Filt Rate - Afr Amer 143 mL/min (>60); Glucose 100 mg/dL (74-106); Potassium 3.8 mmol/L (3.5-5.1); Sodium Level 138 mmol/L (136-145)
[2024-02-04 00:32] VITALS: BP 112/62; PULSE 60; RESP 14; O2SAT 98
== END 2024-02-04 00:47 | disposition home or self-care (01) ==
PROVIDERS: Emergency Provider Emergency Medicine; PCP Family Medicine; Visit Provider Emergency Medicine
DX: K52.9 Noninfective gastroenteritis and colitis, unspecified (principal); F19.10 Other psychoactive substance abuse, uncomplicated; F17.210 Nicotine dependence, cigarettes, uncomplicated; F17.220 Nicotine dependence, chewing tobacco, uncomplicated; F17.290 Nicotine dependence, other tobacco product, uncomplicated; Z88.0 Allergy status to penicillin; Z86.19 Personal history of other infectious and parasitic diseases; Z79.891 Long term (current) use of opiate analgesic
CPT/HCPCS: 74176; 80048; 81001; 85025; 99283; A4216